=== PATIENT | male | born 1955 | race Caucasian/White ===

== ENCOUNTER 2024-07-01 05:46 | Day surgery (SDC) | payer MEDICARE ==
[2024-06-29 13:35] LABS: BASOPHILS # (AUTO) 0.07 K/uL (0.00-0.20); BASOPHILS % (AUTO) 0.9 % (0.0-5.0); EOSINOPHILS # (AUTO) 0.37 K/uL (0.00-0.70); EOSINOPHILS % (AUTO) 4.7 % (0.0-8.0); HEMATOCRIT 38.1 % (42-54); IMMATURE GRANULOCYTE ABSOLUTE 0.02 K/uL (0-1); LYMPHOCYTES % (AUTO) 25.4 % (21.0-51.0); MEAN CORPUSCULAR HEMOGLOBIN 29.3 pg (27.0-33.0); MEAN CORPUSCULAR HGB CONC 31.5 g/dL (32.0-36.0); MEAN CORPUSCULAR VOLUME 92.9 fL (79-99); MONOCYTES # (AUTO) 0.8 K/uL (0.1-1.0); MONOCYTES % (AUTO) 9.7 % (3.0-13.0); NEUTROPHILS # (AUTO) 4.6 K/uL (1.8-7.7); PLATELET COUNT (AUTO) 290 K/uL (130-400); RED CELL DISTRIBUTION WIDTH 15.1 % (11.0-15.5); WHITE BLOOD COUNT (AUTO) 7.8 K/uL (4.8-10.8)
[2024-06-29 13:48] LABS: INR 1.08 (0.85-1.15)
[2024-06-29 13:49] LABS: PARTIAL THROMBOPLASTIN TIME 29.1 SEC (26.3-35.5)
[2024-06-29 13:54] LABS: CREATININE 1.3 mg/dL (0.5-1.3); POTASSIUM 5.1 mmol/L (3.5-5.1)
[2024-06-29 14:30] VITALS: BP 123/58; PULSE 60; RESP 15; TEMP 97.7
--- NOTE | 2024-06-29 16:46 | EKG ---
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
[~2024-07-01] VITALS: Ht 177.8 cm; Wt 90.7 kg
[2024-07-01] VITALS (19 sets, daily range): BP systolic 95–140; BP diastolic 54–74; PULSE 73–82; RESP 10–20; TEMP 96.8–98.1
[~2024-07-01 05:46] MED LIST: APIX5TAB PO; ATOR40TA71 PO; BUPR-49 PO; METF-446 PO; METO-391 PO; TAMS-1 PO
[2024-07-01] MEDS ORDERED: 0.9%NACL 1000ML 1,000 ML IV ONE (06:05)
[2024-07-01] MEDS ORDERED: ketaMINE 50MG/ML SYRINGE 50 MG/ML DISP.SYRIN ONE (06:59)
[2024-07-01] MEDS ORDERED: NEOSTIGMINE METHYLSULFATE 1MG/ML IV ONE (06:59)
[2024-07-01] MEDS ORDERED: LIDOCAINE PF 100MG/5ML (2%) SYRINGE 5ML ONE (06:59)
[2024-07-01] MEDS ORDERED: proPOFol 10 MG/ML 20ML VIAL IV ONE (06:59)
[2024-07-01] MEDS ORDERED: GLYCOPYRROLATE 0.2 MG/ML 5 ML VIAL ONE (06:59)
[2024-07-01] MEDS ORDERED: MIDAZOLAM HCL 1 MG/ML 2ML VIAL ONE ×2 (07:00→07:29)
[2024-07-01] MEDS ORDERED: FENTanyl CITRate PF 50 MCG/1 ML 2ML VIAL ONE ×3 (07:00→11:59)
[2024-07-01] MEDS ORDERED: rocuRONium bROMide 10MG/1ML 5ML VL ONE ×2 (07:00→09:46)
[2024-07-01] MEDS ORDERED: phenylEPHRINE HCL 10 MG/ML 1ML VIAL IV ONE ×3 (07:00→09:20)
[2024-07-01] MEDS ORDERED: LIDOCAINE HCL 400MG/20ML VIAL ONE (07:25)
[2024-07-01] MEDS ORDERED: HEParin 10,000 UNIT/10ML (1,000 UNIT/ML) VIAL ONE ×3 (07:25→09:58)
[2024-07-01] MEDS ORDERED: HEParin-NS 1,000 UNIT/500 ML 1,500 ML IV ONE (07:26)
[2024-07-01] MEDS ORDERED: ePHEDrine SULFate 50 MG/ML AMPULE ONE (08:43)
[2024-07-01 09:36] LABS: ABG BASE EXCESS -2.1 mmol/L (-2.0-3.0); ABG HCO3 22.8 mmol/L (21.0-28.0); ABG OXYGEN SATURATION 99.6 % (94.0-98.0); ABG PCO2 40 mmHg (35-48); ABG PH 7.378 (7.350-7.450); CARBON MONOXIDE 0.3 % (0.5-1.5); HHb 0.4; PO2, ARTERIAL BG 483.9 mmHg (83.0-108.0); VENT MODE, BG ANT VENT (ROOM AIR)
[2024-07-01] MEDS ORDERED: NOREPINEPHRINE BITARTRATE 1 MG/1 ML ML IV ONE (09:50)
[2024-07-01] MEDS ORDERED: SUGAMMADEX SODIUM 200 MG/2 ML VIAL IV ONE (11:31)
[2024-07-01] MEDS ORDERED: PROTamine SULFate 10 MG/ML 25ML VIAL IV ONE (11:34)
[2024-07-01] MEDS ORDERED: PANT40TA55 PO (11:47)
[2024-07-01] MEDS ORDERED: SUCR1TAB2 PO (11:47)
[2024-07-01] MEDS: PANTOPrazole 40 MG TAB DR PO ONE (12:32)
[2024-07-01] MEDS: SUCRALFATE 1 GM/10 ML PO ONE (12:32)
--- NOTE | 2024-07-01 14:27 | NUR ---
REPORT: REPORT GIVEN TO SAAD WILKINS RN
--- NOTE | 2024-07-01 15:02 | NUR ---
DR. FERREIRA MADE AWARE PATIENT BLADDER SCAN RESULTS SHOWING 300 ML MAX VOLUME. PATIENT DENIES FEELING URGE TO URINATE, BLADDER DOES NOT FEEL DISTENDED. PER MD, PATIENT OK TO DISCHARGE HOME. INSTRUCTED PATIENT TO CONTINUE TO DRINK PLENTY OF FLUIDS. PATIENT AND SPOUSE EDUCATED IF UNABLE TO VOID BY THIS EVENING (8PM) AND HAVING DISCOMFORT, TO REPORT TO NEAREST ER. PATIENT AND SPOUSE VERBALIZED UNDERSTANDING.
--- NOTE | 2024-07-01 15:30 | NUR ---
PATIENT UP TO RESTROOM AT THIS TIME AND VOIDED.
== END 2024-07-01 15:40 | disposition home or self-care (01) ==
LOC: DAH 05:46
PROVIDERS: ATTEND Internal Medicine Cardiovascular Disease
DX: I48.19 Other persistent atrial fibrillation (principal); I10 Essential (primary) hypertension; E11.9 Type 2 diabetes mellitus without complications; I25.10 Atherosclerotic heart disease of native coronary artery without angina pectoris; G47.33 Obstructive sleep apnea (adult) (pediatric); E78.5 Hyperlipidemia, unspecified; Z95.5 Presence of coronary angioplasty implant and graft; Z96.652 Presence of left artificial knee joint; Z86.73 Personal history of transient ischemic attack (TIA), and cerebral infarction without residual deficits; Z99.89 Dependence on other enabling machines and devices; Z79.01 Long term (current) use of anticoagulants; Z79.84 Long term (current) use of oral hypoglycemic drugs; Z79.899 Other long term (current) drug therapy
CPT/HCPCS: 80048; 85025; 85610; 85730; 36415 ×2; 93005; 93656; 82947; 93657 ×2; 82435; 84132; 84295; 82803; 85347 ×9; 85018; 83605; 82948 ×2; A4344; C1894 ×4; C1732 ×3; A4649 ×2; C1760 ×3; C1766; J3010 ×3; J3490 ×5; J7030; J2003; J1644 ×4; J2250; J2704; J2710; J2371 ×3; A4215; A4222; A4221; A4663; A4216; A4606; J2720; A4223 ×3

== ENCOUNTER 2024-07-03 12:41 | Inpatient (IN) | payer MEDICARE ==
[~2024-07-03] VITALS: Ht 177.8 cm; Wt 93.5 kg
[~2024-07-03 12:41] MED LIST changes: +PANT40TA55 PO; +SUCR1TAB2 PO
--- NOTE | 2024-07-03 13:05 | EKG ---
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
--- NOTE | 2024-07-03 13:27 | HMCIMG ---
Exam Type: CHEST 1VW Clinical Information: sob Comparison: None Findings: The lungs are clear of infiltrates. The heart is normal in size. The bony and soft tissue structures of the chest are unremarkable. Impression: Clear lungs.
[2024-07-03 13:46] LABS: BASOPHILS # (AUTO) 0.04 K/uL (0.00-0.20); BASOPHILS % (AUTO) 0.3 % (0.0-5.0); EOSINOPHILS # (AUTO) 0.01 K/uL (0.00-0.70); EOSINOPHILS % (AUTO) 0.1 % (0.0-8.0); HEMATOCRIT 33.1 % (42-54); IMMATURE GRANULOCYTE ABSOLUTE 0.06 K/uL (0-1); LYMPHOCYTES # (AUTO) 1.1 K/uL (1.0-4.8); LYMPHOCYTES % (AUTO) 8.2 % (21.0-51.0); MEAN CORPUSCULAR HEMOGLOBIN 29.7 pg (27.0-33.0); MEAN CORPUSCULAR HGB CONC 31.7 g/dL (32.0-36.0); MEAN CORPUSCULAR VOLUME 93.5 fL (79-99); MONOCYTES # (AUTO) 1.2 K/uL (0.1-1.0); MONOCYTES % (AUTO) 9.1 % (3.0-13.0); NEUTROPHILS # (AUTO) 10.6 K/uL (1.8-7.7); NEUTROPHILS % (AUTO) 81.8 % (40.0-77.0); PLATELET COUNT (AUTO) 206 K/uL (130-400); RED BLOOD CELL COUNT(AUTO) 3.54 MIL/uL (4.50-6.20); RED CELL DISTRIBUTION WIDTH 15.2 % (11.0-15.5)
[2024-07-03 13:59] LABS: CREATININE 1.3 mg/dL (0.5-1.3); POTASSIUM 3.5 mmol/L (3.5-5.1)
[2024-07-03 14:03] LABS: ALBUMIN 3.1 g/dL (3.5-5.0); BILIRUBIN,DIRECT 0.4 mg/dL (0.0-0.3); BILIRUBIN,TOTAL 1.2 mg/dL (0.2-1.0); TOTAL PROTEIN, SERUM 6.3 g/dL (6.0-8.3)
[2024-07-03 14:28] LABS: APPEARANCE,URINE CLOUDY (CLEAR); BILIRUBIN,URINE NEGATIVE (NEGATIVE); COLOR,URINE YELLOW (YELLOW); GLUCOSE, URINE (UA) NEGATIVE (NEGATIVE); KETONES,URINE NEGATIVE (NEGATIVE); LEUKOCYTE ESTERASE ,URINE 500 Leu/uL (NEGATIVE); NITRATE,URINE NEGATIVE (NEGATIVE); OCCULT BLOOD,URINE SMALL (NEGATIVE); PH,URINE 5.5 (5.0-8.0); PROTEIN,URINE 10 mg/dL (NEGATIVE); UROBILINOGEN,URINE 0.2 mg/dL (0.2-1.0)
[2024-07-03 14:30] LABS: ADD UA MICROSCOPIC YES
--- NOTE | 2024-07-03 14:45 | ERN ---
General Chief Complaint: Post-Op Problem Stated Complaint: FEVER,VOMITTING,MULTIPLE COMPLAINTS Time Seen by MD: 12:43 Time Seen by Midlevel: 12:43 Source: patient History of Present Illness Initial Comments Patient is a 68-year-old male with a past medical history of atrial fibrillation, type 2 diabetes, and coronary artery disease presenting to the emergency department with generalized body weakness, subjective fever and one episode of nausea/vomiting that occurred prior to arrival. The patient reports having a heart ablation performed two days ago by Dr. Moreno. He was given Protonix and sucralfate but states that this morning he did not f wake up feeling good so he decided to report to the ER for further evaluation. Denies any chest pain or shortness of breath. Allergies: Coded Allergies: bee venom protein (honey bee) (Unverified Allergy, Unknown, 06/29/24) Home Meds Active Scripts Pantoprazole Sodium (Protonix) 40 Mg Ectab, 1 TAB PO DAILY for 15 Days, #15 TAB 0 Refills Prov:NELIDA MORENO MD 07/01/24 Reported Medications Metformin HCl (Metformin HCl) 1,000 Mg Tablet, 1000 MG PO BID, TAB 06/29/24 Atorvastatin Calcium (Atorvastatin Calcium) 40 Mg Tablet, 40 MG PO AM, TAB 06/29/24 Metoprolol Succinate (Metoprolol Succinate) 50 Mg Tab.er.24h, 50 MG PO BID, TAB 06/29/24 Tamsulosin HCl (Flomax) 0.4 Mg Cap.er.24h, 0.8 MG PO AM, CAPSULE.DR 06/29/24 Bupropion HCl (Bupropion Xl) 150 Mg Tab.er.24h, 150 MG PO AM, TAB 06/29/24 Apixaban (Eliquis) 5 Mg Tablet, 5 MG PO BID, TAB 06/29/24 Discontinued Scripts Sucralfate (Sucralfate) 1 Gram Tablet, 1 TAB PO QID for 15 Days, #60 TAB 0 Refills MUST DISSOLVE IN WATER DO NOT CRUSH Prov:NELIDA MORENO MD 07/01/24 Past Medical History Past Medical History: A-Fib, Diabetes-Type II, Heart Disease Past Surgical History: Other Surgical History Other: HEART ABLATION, KNEE, BACK, NECK ROS Dictation CONSTITUTIONAL: Negative except for HPI HEAD/FACE: Negative except for HPI EENT: Negative except for HPI RESPIRATORY: Negative except for HPI GASTROINTESTINAL/ABDOMINAL: Negative except for HPI GENITOURINARY: Negative except for HPI MUSCULOSKELETAL: Negative except for HPI INTEGUMENTARY: Negative except for HPI NEUROLOGICAL/PSYCH: Negative except for HPI HEMATOLOGIC/LYMPHATIC: Negative except for HPI All Systems Negative, Except as noted above. 13 point review of systems assessed and all negative except for above. Physical Exam Physical Exam Dictation Vital Signs reviewed General Appearance: Alert, oriented x 3, no acute distress, well developed, nourished. Head and Face: non-traumatic. Eyes: PERRL, pink conjunctivas, eyelid no trauma, anterior chamber with arcus senilis. Ears: Pinnas intact and no signs of trauma or erythema ear canals clear and no discharge TM no erythema Nose: No discharge, no bleeding. Oropharynx: Mouth normal, tongue pink, pharynx clear,no erythema, tonsils no exudates, no abscesses noted, mucous membrane moist Neck: Supple, non-tender, no thyromegaly, no masses, no JVD, no bruits Breast:Deferred Chest:No tenderness, no crepitus, no paradoxical movement, no retractions Lungs:Clear, well-ventilated, symmetric, no rales, no wheezing, no rhonchi, no stridor, good breath sounds bilaterally Heart: Regular rate, regular rhythm, no murmur, no gallops Vascular: no peripheral edema, Abdomen: Soft, positive bowel sounds, nondistended, no guarding, nontender, no rebound, no masses no hepatomegaly, no splenomegaly, no Roldan's sign, no hernias. Rectal: Deferred Genital: Deferred Neurological: Normal speech, motor function intact, sensory function intact Musculoskeletal: Neck nontender, full range of motion, back nontender, full range of motion, Extremities: nontender, full range of motion Skin: Color pink, dry, no turgor, no rash, no lacerations, no abrasions, no contusions. Lymphatic: Deferred Results Laboratory and Microbiology Lab and Micro Result Laboratory Tests Test 07/03/24 13:35 07/03/24 14:00 07/03/24 14:44 White Blood Count 13.0 K/uL (4.8-10.8) H Red Blood Count 3.54 MIL/uL (4.50-6.20) L Hemoglobin 10.5 g/dL (14.0-18.0) L Hematocrit 33.1 % (42-54) L Mean Corpuscular Volume 93.5 fL (79-99) Mean Corpuscular Hemoglobin 29.7 pg (27.0-33.0) Mean Corpuscular Hemoglobin Concent 31.7 g/dL (32.0-36.0) L Red Cell Distribution Width 15.2 % (11.0-15.5) Platelet Count 206 K/uL (130-400) Mean Platelet Volume 10.6 fL (7.5-10.5) H Immature Granulocyte % (Auto) 0.5 % (0-1) Neutrophils (%) (Auto) 81.8 % (40.0-77.0) H Lymphocytes (%) (Auto) 8.2 % (21.0-51.0) L Monocytes (%) (Auto) 9.1 % (3.0-13.0) Eosinophils (%) (Auto) 0.1 % (0.0-8.0) Basophils (%) (Auto) 0.3 % (0.0-5.0) Neutrophils # (Auto) 10.6 K/uL (1.8-7.7) H Lymphocytes # (Auto) 1.1 K/uL (1.0-4.8) Monocytes # (Auto) 1.2 K/uL (0.1-1.0) H Eosinophils # (Auto) 0.01 K/uL (0.00-0.70) Basophils # (Auto) 0.04 K/uL (0.00-0.20) Absolute Immature Granulocyte (auto 0.06 K/uL (0-1) Nucleated Red Blood Cells 0.0 % (0.0-0.19) White Cell Morphology Comment See comments Erythrocyte Sedimentation Rate 10 MM/HR (0-20) Sodium Level 138 mmol/L (136-145) Potassium Level 3.5 mmol/L (3.5-5.1) Chloride Level 102 mmol/L (101-111) Carbon Dioxide Level 26 mmol/L (21-32) Blood Urea Nitrogen 16 mg/dL (7-18) Creatinine 1.3 mg/dL (0.5-1.3) Glomerular Filtration Rate Calc 59 mL/min (>90) Random Glucose 152 mg/dL (70-105) H Total Calcium 8.4 mg/dL (8.5-10.1) L Magnesium Level 1.60 mg/dL (1.80-2.40) L Total Bilirubin 1.2 mg/dL (0.2-1.0) H Direct Bilirubin 0.4 mg/dL (0.0-0.3) H Aspartate Amino Transf (AST/SGOT) 30 U/L (10-37) Alanine Aminotransferase (ALT/SGPT) 22 U/L (12-78) Alkaline Phosphatase 125 U/L (50-136) Troponin I High Sensitivity 420 ng/L (4-75) *H 368 ng/L (4-75) *H C-Reactive Protein, Quantitative 51.90 mg/L (0.5-3.0) H Total Protein 6.3 g/dL (6.0-8.3) Albumin 3.1 g/dL (3.5-5.0) L Lipase 31 U/L (16-77) Procalcitonin 0.06 ng/mL (0.05-0.5) Urine Color YELLOW (YELLOW) Urine Appearance CLOUDY (CLEAR) H Urine pH 5.5 (5.0-8.0) Urine Specific [place] 1.019 (1.001-1.031) Urine Protein 10 mg/dL (NEGATIVE) H Urine Glucose (UA) NEGATIVE mg/dL (NEGATIVE) Urine Ketones NEGATIVE mg/dL (NEGATIVE) Urine Occult Blood SMALL (NEGATIVE) H Urine Nitrate NEGATIVE (NEGATIVE) Urine Bilirubin NEGATIVE mg/dL (NEGATIVE) Urine Urobilinogen 0.2 mg/dL (0.2-1.0) Urine Leukocyte Esterase 500 Jimbo/uL (NEGATIVE) H Urine RBC 2-5 /HPF (0-1) H Urine WBC 51-100 /HPF (0-1) H Urine Bacteria RARE /HPF (None Seen) Urine Hyaline Casts 2-5 /LPF (0-1 /LPF) H Labs Reviewed?: Yes MDM MDM: Differential diagnosis: ACS, postop complication, dehydration, electrolyte abnormality Rationale: Tests considered and ordered secondary to shared decision making include: Previous outside records reviewed: Old ER visits. Risk of complication and/or morbidity or mortality of patient management: None Medications-Per medication reconciliation Need for hospitalization: Patient does meet criteria for hospitalization. Need for emergency major/minor surgery: No There are no social concerns with this patient. Prescription drug management Prescriptions will include symptomatic care Patient's prior external medical records from other ER visits were reviewed by me as indicated. Prior testing and results from previous visits were reviewed. Prior tests were taken into account with medical decision making and resource utilization, independent historian/historians were used to obtain complete medical history. I independently interpreted the test that were performed, results were reviewed by me and considered findings on radiology if ordered. Medical management and examination interpretation discussions were had by me with other qualified healthcare professionals as indicated for the patient's care. ED Course Orders Procedure Category Date Status Time Cbc With Differential LAB 07/03/24 Complete 12:55 Basic Metabolic Panel LAB 07/03/24 Complete 12:55 Hepatic Function Panel LAB 07/03/24 Complete 12:55 Lipase LAB 07/03/24 Complete 12:55 Urinalysis Profile LAB 07/03/24 Complete 12:55 Chest 1vw RAD 07/03/24 Resulted 12:55 12 Lead Ekg Tracing- EKG 07/03/24 Resulted Technical 12:56 Troponin I High LAB 07/03/24 Complete Sensitivity 12:56 Culture Urine JENNIFER 07/03/24 In Process 14:30 Troponin I High LAB 07/03/24 Complete Sensitivity 14:35 Vital Signs Date Time Temp Pulse Resp B/P (MAP) Pulse Ox O2 Delivery O2 Flow Rate FiO2 07/03/24 12:50 98.2 79 16 103/57 98 Room Air [address] [facility] [address] [place] [id number] IMAGING REPORT Signed PATIENT: BAYRON SMITH MR#: [id number] : 1955 SEX: M AGE: 68 LOCATION: ED ORDER [id number] STATUS: REG ER REPORT#: [id number] SERVICE 1255 REASON: sob ORDERING PHYSICIAN: MARIA GUADALUPE MCKEON PROCEDURE: CXR1VW - CHEST 1VW Exam Type: CHEST 1VW Clinical Information: sob Comparison: None Findings: The lungs are clear of infiltrates. The heart is normal in size. The bony and soft tissue structures of the chest are unremarkable. Impression: Clear lungs. DICTATED BY: SALAZAR MORAN MD DATE: 07/03/24 1324 ELECTRONICALLY SIGNED BY: SALAZAR MORAN MD DATE: 07/03/24 1327 DX & DISP Disposition: Inpatient Decision to Admit Date: Jul 03, 2024 Departure Impression: Primary Impression: Elevated troponin Additional Impression: Urinary tract infection Condition: Stable Referrals: SELF,REFERRAL (PCP) I have reviewed the case, and I agree with, Diagnosis and Plan I performed the substantive portion of the visit. I have reviewed and personally made and approve the management plan that is documented in the note by myself or the AMOS. I acknowledge for responsibility for the patient's management plan. MARIA GUADALUPE MCKEON Jul 03, 2024 14:45
[2024-07-03 14:54] LABS: BACTERIA,URINE RARE /HPF (None Seen); MUCUS,URINE RARE LPF (None Seen); WBC,URINE 51-100 /HPF (0-1)
[2024-07-03 15:56] LABS: MAGNESIUM 1.6 mg/dL (1.80-2.40)
[2024-07-03] MEDS ORDERED: ondanSETRON 4MG INJ IVP PRN (16:00)
[2024-07-03] MEDS ORDERED: acetaMINOPHEN 325 MG TAB PO PRN (16:00)
[2024-07-03] MEDS ORDERED: PoTASSium chloRIDE 20MEQ/100ML 100 ML IV PRN (16:00)
[2024-07-03] MEDS ORDERED: PoTASSium chl 10% ELIXIR 20MEQ 20 MEQ/15 ML UDCUP PO PRN (16:00)
[2024-07-03] MEDS ORDERED: 0.9%NACL 50ML IV SCH (16:00)
--- NOTE | 2024-07-03 16:08 | NUR ---
advised doctor palma of lactic acis of 2.6, new order for fluids. Shoer Doctor Jewell at bedside and doctor palma
[2024-07-03] MEDS: ZOSYN 3.375GM +NS 50ML IVPB SCH (16:17)
[2024-07-03] MEDS: 0.9%NACL 1000ML 1,000 ML IV SCH (16:17)
--- NOTE | 2024-07-03 16:27 | PN ---
[facility] Progress Note CARDIOLOGY CONSULTATION June Chief complaint: This a 68-year-old male was admitted with fever , chills and dysuria and we are asked to address elevated troponin. History of present illness: The patient has a history of persistent atrial fibrillation and has been on chronic anticoagulation with Eliquis. He was here two days ago and underwent an AFib ablation procedure. It is not clear at that time whether a Louie catheter was placed during the procedure whether he required cardioversion during the procedure. He presents now with fever chills [place] [address]. Troponins are 420 and 368. The patient denies any chest pain. His electrocardiogram shows sinus rhythm with left bundle branch block which is chronic. Past medical history: The patient has a history of hypertension diabetes mellitus type 2 and remote history of TIA. He has known coronary disease and underwent PCI to the LAD in 2020. His left bundle branch block is chronic. He has a history of obstructive sleep apnea on CPAP therapy. Previous 2D echocardiogram in December 2023 showed an ejection fraction of 50-55%. He had [id number]-fuytqnok pulmonary hypertension with an estimated PA pressure of 55 mm Hg. Medications: The patient is taking Eliquis atorvastatin metoprolol succinate metformin. Review of systems: As noted he has had some fever and chills he denies any chest pain or shortness of breath. Allergies: Bee venom Physical exam: Blood pressure is 103/57 heart rate is in the 70s and currently regular. There was no elevation of the jugular venous pressure no bruits heard S1 normal S2 physiologically split. No murmur appreciable. Abdomen is soft. He has some ecchymosis in the right inguinal area around his access site for his recent ablation. Extremities show no edema. He is alert and oriented. Catheterization site in the right femoral area shows some ecchymosis. The areas soft. Laboratory studies: Potassium 3.5 BUN 16 creatinine 1.3 estimated GFR of 59. White count 38784 hemoglobin 10.5 platelet count is [id number]. Does have a left shift in his differential and has leukocyte esterase positive. Assessment: 1. Urinary tract infection 2. Elevated troponin post recent ablation possibly related to the ablation procedure and/or cardioversions during the procedure versus troponin leak in the setting of sepsis and type 2 ME. patient does however have underlying coronary disease in his status post a prior intervention on his LAD. If he has significant rise in troponins further ischemic workup will be necessary. 3. Diabetes mellitus type 2 4. Dyslipidemia 5. Chronic kidney disease stage IIIA 6. Remote history of TIA. Plan: The medical service I have ordered an ultrasound to look at the puncture site. We will plan on 0 troponins and if there was a significant rise in troponin he will require an ischemic workup otherwise this may represent a troponin leak and type 2 ME in the setting of urinary tract and possible sepsis. Additional possibility would include cardioversion at this was performed during his ablation procedures. Antibiotics as per the medical service. In the interim we will continue with his atorvastatin metoprolol succinate apixaban insulin scale and antibiotics. If in his troponin leak I will add aspirin 81 mg daily to his regimen. MARLON NARANJO MD Jul 03, 2024 16:27
[2024-07-03] MEDS: INSULIN humuLIN R 100 UNIT/ML 3ML SQ SCH (16:30)
[2024-07-03] MEDS: ASPIRIN 81MG CHEW TAB PO ONE (17:07)
[2024-07-03] MEDS: SUCRALFATE 1 GM TABLET PO SCH (17:07)
[2024-07-03] MEDS: 0.9% NACL 500ML IV.SOLN 500 ML IV ONE (17:07)
--- NOTE | 2024-07-03 17:20 | HP ---
[facility] HISTORY AND PHYSICAL Date of Service: Jul 03, 2024 Time of Service: 17:20 HISTORY OF PRESENT ILLNESS: Date of service: 07/03/2024, patient was seen in ER room 19 This is a 68 year old male with underlying history of atrial fibrillation status post recent cardiac ablation by Dr. Gilbert on 07/01/2024, prior history of cardioversion x4 for underlying atrial fibrillation, history of chronic anticoa gulation with Eliquis, hypertension, hyperlipidemia, history of coronary artery disease with prior history of stent to LAD, who presented to the ER for further evaluation of fevers, chills, malaise and dysuria. Symptoms have been ongoing since this morning and have proven progressively getting worse. Patient reports that he may have had Louie catheter placed while he underwent cardiac ablation. Since then he has been having significant dysuria as well. Denies any previous history of UTIs. Denies active chest pain or pleurisy. Patient states that he has been compliant with anticoagulation with Eliquis and continues to take metoprolol succinate post ablation. Family reports that patient has been having fevers of 101 F at home and he took Tylenol prior to coming to the ER. On presentation to the hospital, patient was noted to be afebrile with T-max of 98.2 F, pulse of 79, blood pressure 103/57. [place] [address], hemoglobin of 10.5, platelet count of 340022. BMP remarkable for sodium of 138, potassium 3.5, magnesium of 1.6, creatinine of 1.3, BUN of 16, high sensitivity troponin was noted to be el evated at 420. Urinalysis showed cloudy urine with significant leukocyte esterase, pyuria and bacteriuria. Patient will be admitted for further management of urinary tract infection. We will have Cardiology follow up with regards to elevated high sensitivity troponin. REVIEW OF SYSTEMS CONSTITUTIONAL: Asthenia, malaise, fevers, chills NEUROLOGICAL: Denies headache, amaurosis fugax, motor weakness, sensory deficit, vertigo/spinning sensation, gait abnormalities, or tremors. ENT: No hearing loss, otalgia, otorrhea, rhinitis, rhinorrhea, hoarseness, or sore throat. CARDIOVASCULAR: Denies any exertional angina, dyspnea on exertion, orthopnea, paroxysmal nocturnal dyspnea, palpitations, life-threatening arrhythmias, claudication. PULMONARY: Denies any shortness of breath, cough, phlegm/sputum, hemoptysis, pleuritic chest pain. SLEEP: Denies morning headaches, daytime somnolence or napping. Denies difficulty falling asleep, staying asleep, waking from sleep. Denies knowledge of snoring. GASTROINTESTINAL: Denies any type of dysphagia to either liquids or solids. Denies nausea, vomiting, pyrosis, early satiety, abdominal pain, diarrhea, constipation, or changes in stool consistency or caliber. Denies coffee-ground emesis, hematemesis, hematochezia, or melanotic stools. GENITOURINARY: Reports having dysuria and urinary urgency ENDOCRINOLOGIC: Denies polyuria, polydipsia, polyphagia or heat/cold intolerances. HEMATOLOGIC: Denies thrombophilia/previous clots, or coagulopathy/bleeding disorders. ONCOLOGIC: Denies personal history of malignancy. DERMATOLOGIC: Denies rashes or pruritus. PSYCHIATRIC: Denies any suicidal or homicidal ideation. Denies hallucinations. PAST MEDICAL HISTORY: Past medical history significant for hypertension, hyperlipidemia, history of TIA, coronary artery disease chronic left bundle branch block, obstructive sleep apnea, history of pulmonary hypertension, type 2 diabetes mellitus, history of atrial fibrillation PAST SURGICAL HISTORY: Patient has a previous history of PCI to LAD in 2020, history of cervical spine surgery with cervical spine fusion, history of back surgery in 2022, history of knee arthroplasty in 2023 PAST SOCIAL HISTORY: Denies active smoking or alcohol consumption FAMILY HISTORY: Denies pertinent family history Allergies: Patient reports having allergic reaction to bee venom protein Medications: Patient reports being on outpatient treatment with Carafate 1 g q.i.d., Protonix 40 mg daily, metformin 1000 mg b.i.d., Lipitor 40 mg daily, metoprolol succinate 50 mg b.i.d., Flomax 0.4 mg daily, bupropion 150 mg daily, apixaban 5 mg p.o. b.i.d. Coded Allergies: bee venom protein (honey bee) (Unverified Allergy, Unknown, 06/29/24) PHYSICAL EXAM GENERAL APPEARANCE: The patient is awake, alert, and oriented, in no acute card iopulmonary distress. NEUROLOGICAL: Cranial nerves II-XII grossly intact. Motor is 5/5 in bilateral upper and lower extremities proximal to distal. No sensory deficits. HEENT: Face is symmetric. Pupils are equal and reactive. Extraocular movements are intact. NECK: Supple. No JVD. No thyromegaly. No submental, submandibular, pre- /postauricular, occipital or supraclavicular lymphadenopathy. CHEST: Normal chest expansion. No Telemetry. LUNGS: Absence of any rales, rhonchi or any wheezing. CARDIOVASCULAR: Regular. S1 and S2 normal. No appreciable rubs, murmurs or gallops. ABDOMEN: Soft, nontender, and nondistended. There is no rebound, voluntary guarding, or rigidity. : Deferred. No Louie. EXTREMITIES: Right Groin femoral access site noted to have bruising and ecchymosis SKIN: No skin breakdown. Vital Sign (Last 24 Hours) 07/03/24 07/03/24 12:50 16:27 Temp 98.2 Pulse 80 Resp 17 B/P (MAP) 113/59 Pulse Ox 99 O2 Delivery Room Air* O2 Flow Rate 0 FiO2 21 LABS: Laboratory: Test 07/03/24 17:09 07/03/24 15:58 07/03/24 14:44 07/03/24 14:00 Range/Units Whole Blood Glucose 122 H 70-110 MG/DL Lactic Acid Level 2.6 H 0.8-2.5 mmol/L Troponin I High Sensitivity 368 *H 4-75 ng/L Urine Color YELLOW YELLOW Urine Appearance CLOUDY H CLEAR Urine pH 5.5 5.0-8.0 Urine Specific [place] 1.019 1.001-1.031 Urine Protein 10 H NEGATIVE mg/dL Urine Glucose (UA) NEGATIVE NEGATIVE mg/dL Urine Ketones NEGATIVE NEGATIVE mg/dL Urine Occult Blood SMALL H NEGATIVE Urine Nitrate NEGATIVE NEGATIVE Urine Bilirubin NEGATIVE NEGATIVE mg/dL Urine Urobilinogen 0.2 0.2-1.0 mg/dL Urine Leukocyte Esterase 500 H NEGATIVE Jimbo/uL Urine RBC 2-5 H 0-1 /HPF Urine WBC 51-100 H 0-1 /HPF Urine Bacteria RARE None Seen /HPF Urine Hyaline Casts 2-5 H 0-1 /LPF /LPF Test 07/03/24 13:35 Range/Units White Blood Count 13.0 H 4.8-10.8 K/uL Red Blood Count 3.54 L 4.50-6.20 MIL/uL Hemoglobin 10.5 L 14.0-18.0 g/dL Hematocrit 33.1 L 42-54 % Mean Corpuscular Volume 93.5 79-99 fL Mean Corpuscular Hemoglobin 29.7 27.0-33.0 pg Mean Corpuscular Hemoglobin Concent 31.7 L 32.0-36.0 g/dL Red Cell Distribution Width 15.2 11.0-15.5 % Platelet Count 206 130-400 K/uL Mean Platelet Volume 10.6 H 7.5-10.5 fL Immature Granulocyte % (Auto) 0.5 0-1 % Neutrophils (%) (Auto) 81.8 H 40.0-77.0 % Lymphocytes (%) (Auto) 8.2 L 21.0-51.0 % Monocytes (%) (Auto) 9.1 3.0-13.0 % Eosinophils (%) (Auto) 0.1 0.0-8.0 % Basophils (%) (Auto) 0.3 0.0-5.0 % Neutrophils # (Auto) 10.6 H 1.8-7.7 K/uL Lymphocytes # (Auto) 1.1 1.0-4.8 K/uL Monocytes # (Auto) 1.2 H 0.1-1.0 K/uL Eosinophils # (Auto) 0.01 0.00-0.70 K/uL Basophils # (Auto) 0.04 0.00-0.20 K/uL Absolute Immature Granulocyte (auto 0.06 0-1 K/uL Nucleated Red Blood Cells 0.0 0.0-0.19 % White Cell Morphology Comment See comments Erythrocyte Sedimentation Rate 10 0-20 MM/HR Sodium Level 138 136-145 mmol/L Potassium Level 3.5 3.5-5.1 mmol/L Chloride Level 102 101-111 mmol/L Carbon Dioxide Level 26 21-32 mmol/L Blood Urea Nitrogen 16 7-18 mg/dL Creatinine 1.3 0.5-1.3 mg/dL Glomerular Filtration Rate Calc 59 >90 mL/min Random Glucose 152 H 70-105 mg/dL Total Calcium 8.4 L 8.5-10.1 mg/dL Magnesium Level 1.60 L 1.80-2.40 mg/dL Total Bilirubin 1.2 H 0.2-1.0 mg/dL Direct Bilirubin 0.4 H 0.0-0.3 mg/dL Aspartate Amino Transf (AST/SGOT) 30 10-37 U/L Alanine Aminotransferase (ALT/SGPT) 22 12-78 U/L Alkaline Phosphatase 125 50-136 U/L C-Reactive Protein, Quantitative 51.90 H 0.5-3.0 mg/L Total Protein 6.3 6.0-8.3 g/dL Albumin 3.1 L 3.5-5.0 g/dL Lipase 31 16-77 U/L Procalcitonin 0.06 0.05-0.5 ng/mL Current Medications Medications (Trade) Dose Ordered Sig/Jair Route PRN Reason Start Time Stop Time Status Last Admin Dose Admin Acetaminophen (TYLenol 325MG TAB) 650 mg Q6H PRN PO MILD PAIN (1-3) 07/03/24 16:00 08/02/24 15:59 Apixaban (EliquIS) 5 mg BID PO 07/03/24 21:00 08/02/24 20:59 Aspirin (Aspirin 81mg Chew Tab) 81 mg DAILY PO 07/04/24 09:00 08/03/24 08:59 Atorvastatin Calcium (LIPItor 40MG) 40 mg AM PO 07/04/24 09:00 08/03/24 08:59 Home Med (Home Medication) (Bupropion Xl) 150 MG) AM PO 07/04/24 09:00 08/03/24 08:59 Insulin Human Regular (humuLIN R 100 UNIT/ML 3ML) INSULIN SLIDING SCAL... ACHS SQ 07/03/24 16:30 08/02/24 16:29 Magnesium Sulfate 50 ml @ 0 mls/hr PROTOCOL IV 07/03/24 16:00 08/02/24 15:59 Metoprolol Succinate (TopROL XL) 50 mg BID PO 07/03/24 21:00 08/02/24 20:59 Ondansetron HCl (zoFRAN 4MG INJ) 4 mg Q6H PRN IVP NAUSEA/VOMITING 07/03/24 16:00 08/02/24 15:59 Pantoprazole Sodium (PROTonix 40MG TAB) 40 mg DAILY PO 07/04/24 09:00 08/03/24 08:59 Piperacillin Sod/ Tazobactam Sod (Zosyn 3.375gm+NS 50ml) 3.375 gm Q8H IVPB 07/03/24 16:00 07/13/24 15:59 07/03/24 16:17 3.375 GM Potassium Chloride 100 ml @ 100 mls/hr AD PRN IV POTASSIUM PROTOCOL 07/03/24 16:00 08/02/24 15:59 Potassium Chloride (K-Dur/Klor-Con 20meq) 20 meq AD PRN PO POTASSIUM PROTOCOL 07/03/24 16:00 08/02/24 15:59 Potassium Chloride (KCl 10% Elixir 20meq/15ml) 20 meq AD PRN PO POTASSIUM PROTOCOL 07/03/24 16:00 08/02/24 15:59 Sodium Chloride 1,000 ml @ 75 mls/hr [id number] IV 07/03/24 16:00 08/02/24 15:59 07/03/24 16:17 75 MLS/HR Sodium Chloride (NS 50ml) 50 ml AD IV 07/03/24 16:00 08/02/24 15:59 Sucralfate (Carafate) 1 gm QID PO 07/03/24 17:00 08/02/24 16:59 07/03/24 17:07 1 GM Tamsulosin HCl (FloMAX) 0.8 mg AM PO 07/04/24 09:00 08/03/24 08:59 DIAGNOSTICS / RADIOLOGY: SERVICE 1255 REASON: sob ORDERING PHYSICIAN: MARIA GUADALUPE MCKEON PROCEDURE: CXR1VW - CHEST 1VW Exam Type: CHEST 1VW Clinical Information: sob Comparison: None Findings: The lungs are clear of infiltrates. The heart is normal in size. The bony and soft tissue structures of the chest are unremarkable. Impression: Clear lungs. DICTATED BY: SALAZAR MORAN MD DATE: 07/03/24 132 ELECTRONICALLY SIGNED BY: SALAZRA MORAN MD DATE: 07/03/24 132 ASSESSMENT: Acute complicated urinary tract infection, POA Leukocytosis secondary to UTI, POA Lactic acidosis, POA Elevated troponin, POA, likely secondary to recent cardiac ablation and possibly demand ischemia Recent history of cardiac ablation for atrial fibrillation on 07/01/[address] Gilbert, POA History of coronary artery disease with prior history of PCI to LAD in 2020, POA Small right groin hematoma with bruising/ecchymosis involving the right femoral access site, POA History of chronic anticoagulation with Eliquis, POA History of atrial fibrillation, POA Underlying history of hypertension, POA Hyperlipidemia, POA Type 2 diabetes mellitus, POA PLAN: Patient will be admitted to cardiac telemetry floor Patient denies active chest pain, cardiac troponin elevation is likely secondary to recent cardiac ablation procedure and possibly demand ischemia from underlying UTI as well We will obtain urine culture, blood culture, monitor lactic acid trend closely Patient will receive bolus of fluids with NS, we will start maintenance IV fluid of NS at 75 mL/hour We will start patient on IV antibiotics with Zosyn, we will also check a flu and a COVID test We will trend troponin and ensure it continues to trend down Right groin site noted to have small hematoma with bruising noted, discussed with Dr. Jewell, we will continue with anticoagulation with Eliquis We will continue with post cardiac ablation prophylaxis with Protonix and Carafate We will obtain a renal ultrasound to rule out any significant urinary tract abnormality given UTI Ensure K is greater than four and magnesium is greater than two, electrolytes will be repleted per protocol Home medications will be reconciled and updated, patient to continue with metoprolol succinate, Lipitor and patient will be started on aspirin 81 mg daily All labs will be repeated in the morning Date of service: 07/03/2024 Plan of care was discussed with patient at bedside, Lewis Boykin MD Advanced Care Planning: Which of the following were discussed: Hospice care: Yes __ No _X_ Therapeutic options: Yes _X_ No __ Advance directives: Yes _X_ No __ Other discussions: Discussed with who?: Patient Voluntary nature of this service was explained to the patient? Yes _x_ No __ Amount of time spent: 20 minutes LEWIS BOYKIN MD Jul 03, 2024 17:20
--- NOTE | 2024-07-03 17:56 | HMCIMG ---
US RENAL SONOGRAM HISTORY: significant UTI, r/o any renal tract abnormality TECHNIQUE: US RENAL SONOGRAM. FINDINGS: RIGHT KIDNEY: The right kidney measures 9.3cm. No hydronephrosis or renal calculus seen. LEFT KIDNEY: The left kidney measures 9.7cm. No hydronephrosis or renal calculus seen. The visualized urinary bladder is within normal limits. IMPRESSION: No hydronephrosis is seen.
--- NOTE | 2024-07-03 18:33 | HMCIMG ---
US SOFT TISSUE GROIN HISTORY: recent cardiac ablation, bruising noted of the right groin, r/o any hematoma TECHNIQUE: US SOFT TISSUE GROIN. FINDINGS/IMPRESSION: Ultrasound evaluation of the right groin was performed. Small fluid collection is seen measuring 1.7 x 1 x 1.5 cm. Prominent lymph nodes are noted, the largest measuring 1.7 cm.
--- NOTE | 2024-07-03 19:32 | NUR ---
PT CARE ASSUMED AT THIS TIME
--- NOTE | 2024-07-03 20:01 | NUR ---
PER DR. VERGARA PT IS OKAY TO CONTINUE WITH ELIQUIS AT THIS TIME
--- NOTE | 2024-07-03 20:08 | NUR ---
SPOKE TO RT TO SET UP HOME CPAP FOR PT AT THIS TIME.
[2024-07-03 21:11] LABS: SARS-CoV-2, RNA, NAAT NEGATIVE SARS CoV-2 (NEGATIVE)
[2024-07-03 21:15] LABS: INFLUENZA TYPE A Negative For Type A (NEGATIVE); INFLUENZA TYPE B Negative For Type B (NEGATIVE)
[2024-07-03] MEDS: metOPROLol sucCINATE 50 MG TAB.SR.24H PO SCH (21:18)
[2024-07-03] MEDS: APIXaban 5 MG TABLET PO SCH (21:19)
[2024-07-03 22:00] VITALS: PULSE 75; RESP 18; O2SAT 96
--- NOTE | 2024-07-03 22:09 | NUR ---
ORDERS GIVEN TO ADMINISTER POTASSIUM AND MAG AT THIS TIME.
[2024-07-03] MEDS: PoTASSium chloRIDE 20MEQ ER 20 MEQ ERTAB PO PRN (22:28)
[2024-07-03] MEDS: MAGNESIUM 2GM PREMIX 50ML 50 ML IV SCH (22:29)
[2024-07-03 22:53] VITALS: BP 122/68; PULSE 88; RESP 22; TEMP 98.7
--- NOTE | 2024-07-03 22:53 | NUR ---
PATIENT ARRIVED TO UNIT, WALKING WITH HOME CPAP CONNECTED. PATIENT ALERT, ORIENTED, AND ABLE TO COMMUNICATE NEEDS. CALL [facility] IN [place], TAUGHT HOW TO USE.
[2024-07-03 23:39] VITALS: O2SAT 96
[2024-07-04] VITALS (10 sets, daily range): BP systolic 118–132; BP diastolic 61–89; PULSE 82–89; RESP 18–22; TEMP 97.6–99.8; O2SAT 96–98
[2024-07-04 05:08] LABS: BASOPHILS # (AUTO) 0.04 K/uL (0.00-0.20); BASOPHILS % (AUTO) 0.3 % (0.0-5.0); EOSINOPHILS # (AUTO) 0.03 K/uL (0.00-0.70); EOSINOPHILS % (AUTO) 0.2 % (0.0-8.0); IMMATURE GRANULOCYTE ABSOLUTE 0.11 K/uL (0-1); LYMPHOCYTES # (AUTO) 1.3 K/uL (1.0-4.8); MEAN CORPUSCULAR HEMOGLOBIN 29.8 pg (27.0-33.0); MEAN CORPUSCULAR HGB CONC 32.8 g/dL (32.0-36.0); MEAN CORPUSCULAR VOLUME 90.9 fL (79-99); MONOCYTES % (AUTO) 7.2 % (3.0-13.0); NEUTROPHILS # (AUTO) 11.6 K/uL (1.8-7.7); NEUTROPHILS % (AUTO) 82.5 % (40.0-77.0); PLATELET COUNT (AUTO) 198 K/uL (130-400); RED BLOOD CELL COUNT(AUTO) 3.19 MIL/uL (4.50-6.20); RED CELL DISTRIBUTION WIDTH 15.7 % (11.0-15.5)
[2024-07-04 05:26] LABS: ALBUMIN 2.7 g/dL (3.5-5.0); BILIRUBIN,TOTAL 1.5 mg/dL (0.2-1.0); CREATININE 1.1 mg/dL (0.5-1.3); MAGNESIUM 1.8 mg/dL (1.80-2.40); POTASSIUM 3.8 mmol/L (3.5-5.1); TOTAL PROTEIN, SERUM 5.8 g/dL (6.0-8.3)
[2024-07-04] MEDS: tamSULOsin HCL 0.4 MG CAP.ER.24H PO SCH (08:31)
[2024-07-04] MEDS: ASPIRIN 81MG CHEW TAB PO SCH (08:31)
[2024-07-04] MEDS: PANTOPrazole 40 MG TAB DR PO SCH (08:31)
[2024-07-04] MEDS: atorVAStatin 40 MG TABLET PO SCH (08:32)
[2024-07-04] MEDS: BUPROPION PO SCH (08:38)
--- NOTE | 2024-07-04 12:15 | PN ---
[facility] PROGRESS NOTE Date of Service: Jul 04, 2024 Time of Service: 12:14 SUBJECTIVE: [ ] This is a 68-year-old male with past medical history of essential hypertension, hyperlipidemia, history of TIA, CAD, chronic left bundle-branch block, SARA, history of pulmonary hypertension, diabetes mellitus type, atrial fibrillation on Eliquis and recent cardiac ablation with Dr. Gilbert on 07/01/2024 and prior history of cardioversion x4 secondary to atrial fibrillation was admitted to the cardiac telemetry floor with diagnosis of acute complicated UTI with leukocytosis. Today at bedside evaluation patient is alert and oriented x3. is also at bedside. Latest vitals are stable, afebrile, satting 96% on room air. Today's white count is 14, H&H is stable at 9.5/29, CMP is stable. serial troponins reviewed, latest at 239 . Ecchymosis to right inguinal area. Technology Intern is following due to recent cardiac intervention. Recommended continue aspirin, Lipitor, metoprolol succinate and Eliquis. Pending urine culture results. Continue IV Zosyn for empiric treatment. We will continue to monitor closely. Discussed with primary nurse REVIEW OF SYSTEMS CONSTITUTIONAL: Asthenia, malaise, fevers, chills NEUROLOGICAL: Denies headache, amaurosis fugax, motor weakness, sensory deficit, vertigo/spinning sensation, gait abnormalities, or tremors. ENT: No hearing loss, otalgia, otorrhea, rhinitis, rhinorrhea, hoarseness, or sore throat. CARDIOVASCULAR: Denies any exertional angina, dyspnea on exertion, orthopnea, paroxysmal nocturnal dyspnea, palpitations, life-threatening arrhythmias, claudication. PULMONARY: Denies any shortness of breath, cough, phlegm/sputum, hemoptysis, pleuritic chest pain. SLEEP: Denies morning headaches, daytime somnolence or napping. Denies difficulty falling asleep, staying asleep, waking from sleep. Denies knowledge of snoring. GASTROINTESTINAL: Denies any type of dysphagia to either liquids or solids. Denies nausea, vomiting, pyrosis, early satiety, abdominal pain, diarrhea, constipation, or changes in stool consistency or caliber. Denies coffee-ground emesis, hematemesis, hematochezia, or melanotic stools. GENITOURINARY: Reports having dysuria and urinary urgency ENDOCRINOLOGIC: Denies polyuria, polydipsia, polyphagia or heat/cold intolerances. HEMATOLOGIC: Denies thrombophilia/previous clots, or coagulopathy/bleeding disorders. ONCOLOGIC: Denies personal history of malignancy. DERMATOLOGIC: Denies rashes or pruritus. PSYCHIATRIC: Denies any suicidal or homicidal ideation. Denies hallucinations. PHYSICAL EXAM GENERAL APPEARANCE: The patient is awake, alert, and oriented, in no acute cardiopulmonary distress. NEUROLOGICAL: Cranial nerves II-XII grossly intact. Motor is 5/5 in bilateral upper and lower extremities proximal to distal. No sensory deficits. HEENT: Face is symmetric. Pupils are equal and reactive. Extraocular movements are intact. NECK: Supple. No JVD. No thyromegaly. No submental, submandibular, pre- /postauricular, occipital or supraclavicular lymphadenopathy. CHEST: Normal chest expansion. No Telemetry. LUNGS: Absence of any rales, rhonchi or any wheezing. CARDIOVASCULAR: Regular. S1 and S2 normal. No appreciable rubs, murmurs or gallops. ABDOMEN: Soft, nontender, and nondistended. There is no rebound, voluntary guarding, or rigidity. : Deferred. No Louie. EXTREMITIES: Right Groin femoral access site noted to have bruising and ecchymosis SKIN: No skin breakdown. Vital Signs (last 8hr) Date Time Temp Pulse Resp B/P (MAP) Pulse Ox O2 Delivery O2 Flow Rate FiO2 07/04/24 11:38 99.5 86 20 119/69 96 Room Air 07/04/24 07:45 97.5 87 20 121/89 98 CPAP 07/04/24 07:00 88 18 LABS: Laboratory: Test 07/04/24 11:09 07/04/24 04:43 07/03/24 21:56 07/03/24 20:26 Range/Units Whole Blood Glucose 97 70-110 MG/DL White Blood Count 14.0 H 4.8-10.8 K/uL Red Blood Count 3.19 L 4.50-6.20 MIL/uL Hemoglobin 9.5 L 14.0-18.0 g/dL Hematocrit 29.0 L 42-54 % Mean Corpuscular Volume 90.9 79-99 fL Mean Corpuscular Hemoglobin 29.8 27.0-33.0 pg Mean Corpuscular Hemoglobin Concent 32.8 32.0-36.0 g/dL Red Cell Distribution Width 15.7 H 11.0-15.5 % Platelet Count 198 130-400 K/uL Mean Platelet Volume 10.8 H 7.5-10.5 fL Immature Granulocyte % (Auto) 0.8 0-1 % Neutrophils (%) (Auto) 82.5 H 40.0-77.0 % Lymphocytes (%) (Auto) 9.0 L 21.0-51.0 % Monocytes (%) (Auto) 7.2 3.0-13.0 % Eosinophils (%) (Auto) 0.2 0.0-8.0 % Basophils (%) (Auto) 0.3 0.0-5.0 % Neutrophils # (Auto) 11.6 H 1.8-7.7 K/uL Lymphocytes # (Auto) 1.3 1.0-4.8 K/uL Monocytes # (Auto) 1.0 0.1-1.0 K/uL Eosinophils # (Auto) 0.03 0.00-0.70 K/uL Basophils # (Auto) 0.04 0.00-0.20 K/uL Absolute Immature Granulocyte (auto 0.11 0-1 K/uL Nucleated Red Blood Cells 0.0 0.0-0.19 % Sodium Level 137 136-145 mmol/L Potassium Level 3.8 3.5-5.1 mmol/L Chloride Level 105 101-111 mmol/L Carbon Dioxide Level 27 21-32 mmol/L Blood Urea Nitrogen 14 7-18 mg/dL Creatinine 1.1 0.5-1.3 mg/dL Glomerular Filtration Rate Calc 72 >90 mL/min Random Glucose 102 70-105 mg/dL Total Calcium 8.2 L 8.5-10.1 mg/dL Magnesium Level 1.80 1.80-2.40 mg/dL Total Bilirubin 1.5 #H 0.2-1.0 mg/dL Aspartate Amino Transf (AST/SGOT) 28 10-37 U/L Alanine Aminotransferase (ALT/SGPT) 21 12-78 U/L Alkaline Phosphatase 112 50-136 U/L Total Creatine Kinase 65 21-232 U/L Troponin I High Sensitivity 239.1 *H 4-75 ng/L Total Protein 5.8 L 6.0-8.3 g/dL Albumin 2.7 L 3.5-5.0 g/dL Lactic Acid Level 2.3 0.8-2.5 mmol/L Influenza Type A Antigen Negative For Type A NEGATIVE Influenza Type B Antigen Negative For Type B NEGATIVE SARS-CoV-2, RNA, NAAT NEGATIVE SARS CoV-2 NEGATIVE Test 07/03/24 14:00 07/03/24 13:35 Range/Units Urine Color YELLOW YELLOW Urine Appearance CLOUDY H CLEAR Urine pH 5.5 5.0-8.0 Urine Specific [place] 1.019 1.001-1.031 Urine Protein 10 H NEGATIVE mg/dL Urine Glucose (UA) NEGATIVE NEGATIVE mg/dL Urine Ketones NEGATIVE NEGATIVE mg/dL Urine Occult Blood SMALL H NEGATIVE Urine Nitrate NEGATIVE NEGATIVE Urine Bilirubin NEGATIVE NEGATIVE mg/dL Urine Urobilinogen 0.2 0.2-1.0 mg/dL Urine Leukocyte Esterase 500 H NEGATIVE Jimbo/uL Urine RBC 2-5 H 0-1 /HPF Urine WBC 51-100 H 0-1 /HPF Urine Bacteria RARE None Seen /HPF Urine Hyaline Casts 2-5 H 0-1 /LPF /LPF White Cell Morphology Comment See comments Erythrocyte Sedimentation Rate 10 0-20 MM/HR Direct Bilirubin 0.4 H 0.0-0.3 mg/dL C-Reactive Protein, Quantitative 51.90 H 0.5-3.0 mg/L Lipase 31 16-77 U/L Procalcitonin 0.06 0.05-0.5 ng/mL Current Medications Medications (Trade) Dose Ordered Sig/Jair Route PRN Reason Start Time Stop Time Status Last Admin Dose Admin Acetaminophen (TYLenol 325MG TAB) 650 mg Q6H PRN PO MILD PAIN (1-3) 07/03/24 16:00 08/02/24 15:59 Apixaban (EliquIS) 5 mg BID PO 07/03/24 21:00 08/02/24 20:59 07/04/24 08:31 5 MG Aspirin (Aspirin 81mg Chew Tab) 81 mg DAILY PO 07/04/24 09:00 08/03/24 08:59 07/04/24 08:31 81 MG Atorvastatin Calcium (LIPItor 40MG) 40 mg AM PO 07/04/24 09:00 08/03/24 08:59 07/04/24 08:32 40 MG Home Med (Home Medication) (Bupropion Xl) 150 MG) AM PO 07/04/24 09:00 08/03/24 08:59 Insulin Human Regular (humuLIN R 100 UNIT/ML 3ML) INSULIN SLIDING SCAL... ACHS SQ 07/03/24 16:30 08/02/24 16:29 Magnesium Sulfate 50 ml @ 0 mls/hr PROTOCOL IV 07/03/24 16:00 08/02/24 15:59 07/03/24 22:29 25 MLS/HR Metoprolol Succinate (TopROL XL) 50 mg BID PO 07/03/24 21:00 08/02/24 20:59 07/04/24 08:31 50 MG Ondansetron HCl (zoFRAN 4MG INJ) 4 mg Q6H PRN IVP NAUSEA/VOMITING 07/03/24 16:00 08/02/24 15:59 Pantoprazole Sodium (PROTonix 40MG TAB) 40 mg DAILY PO 07/04/24 09:00 08/03/24 08:59 07/04/24 08:31 40 MG Piperacillin Sod/ Tazobactam Sod (Zosyn 3.375gm+NS 50ml) 3.375 gm Q8H IVPB 07/03/24 16:00 07/13/24 15:59 07/04/24 08:31 3.375 GM Potassium Chloride 100 ml @ 100 mls/hr AD PRN IV POTASSIUM PROTOCOL 07/03/24 16:00 08/02/24 15:59 Potassium Chloride (K-Dur/Klor-Con 20meq) 20 meq AD PRN PO POTASSIUM PROTOCOL 07/03/24 16:00 08/02/24 15:59 07/03/24 22:28 20 MEQ Potassium Chloride (KCl 10% Elixir 20meq/15ml) 20 meq AD PRN PO POTASSIUM PROTOCOL 07/03/24 16:00 08/02/24 15:59 Sodium Chloride 1,000 ml @ 75 mls/hr [id number] IV 07/03/24 16:00 08/02/24 15:59 07/04/24 06:12 75 MLS/HR Sodium Chloride (NS 50ml) 50 ml AD IV 07/03/24 16:00 08/02/24 15:59 Sucralfate (Carafate) 1 gm QID PO 07/03/24 17:00 08/02/24 16:59 07/04/24 08:32 1 GM Tamsulosin HCl (FloMAX) 0.8 mg AM PO 07/04/24 09:00 08/03/24 08:59 07/04/24 08:31 0.8 MG DIAGNOSTICS / RADIOLOGY: [ ] ASSESSMENT: Acute complicated urinary tract infection, POA Leukocytosis secondary to UTI, POA 14 Lactic acidosis, POA Elevated troponin, POA, likely secondary to recent cardiac ablation vs possibly demand ischemia from UTI Recent history of cardiac ablation for atrial fibrillation on 07/01/[address] Gilbert, POA History of coronary artery disease with prior history of PCI to LAD in 2020, POA Small right groin hematoma with bruising/ecchymosis involving the right femoral access site, POA chronic anticoagulation with Eliquis, POA atrial fibrillation, POA Essential hypertension, POA Hyperlipidemia, POA Type 2 diabetes mellitus, POA PLAN: Continue admission in the cardiac telemetry floor Patient denies active chest pain, cardiac troponin elevation is likely secondary to recent cardiac ablation procedure and possibly demand ischemia from underlying UTI as well Continue GI soft diet, advance as tolerated to heart healthy Continue IV Zosyn Pending final urine culture results Slowing down IV fluids with NS now at 35 mL/hr Continue IV Zosyn for empiric treatment Pending urine cultures Right groin site noted to have small hematoma with bruising noted, discussed with Dr. Jewell, we will continue with anticoagulation with Eliquis Continue with post cardiac ablation prophylaxis with Protonix and Carafate Reviewed renal ultrasound Ensure K is greater than four and magnesium is greater than two, electrolytes will be repleted per protocol Home medications will be reconciled and updated, patient to continue with metoprolol succinate, Lipitor and patient will be started on aspirin 81 mg daily Continue to monitor a.m. labs, pending final cultures PRN Treatment - Add when necessary meds for nausea, vomiting, pain, constipation, insomnia. DVT/GI prophylaxis- Continue Eliquis and Protonix at current doses. Full CODE STATUS This document was generated in part using voice recognition software, occasional wrong word or sound alike substitutions may have occurred due to the inherent limitations of voice recognition software. Read the chart carefully and recognize using context, where the substitutions have occurred. Although every effort was made to edit the content, attendant arcade and typing errors may occur JONATHON GALINDO [facility] Jul 04, 2024 12:15
[2024-07-05] VITALS (9 sets, daily range): BP systolic 102–152; BP diastolic 55–87; PULSE 70–101; RESP 18–19; TEMP 98.1–100.3; O2SAT 96–98
[2024-07-05 05:07] LABS: BASOPHILS # (AUTO) 0.07 K/uL (0.00-0.20); BASOPHILS % (AUTO) 0.5 % (0.0-5.0); EOSINOPHILS # (AUTO) 0.12 K/uL (0.00-0.70); EOSINOPHILS % (AUTO) 0.9 % (0.0-8.0); IMMATURE GRANULOCYTE ABSOLUTE 0.07 K/uL (0-1); LYMPHOCYTES # (AUTO) 1.3 K/uL (1.0-4.8); MEAN CORPUSCULAR HEMOGLOBIN 29.7 pg (27.0-33.0); MEAN CORPUSCULAR HGB CONC 33.1 g/dL (32.0-36.0); MEAN CORPUSCULAR VOLUME 89.8 fL (79-99); MONOCYTES # (AUTO) 1.5 K/uL (0.1-1.0); MONOCYTES % (AUTO) 11.3 % (3.0-13.0); NEUTROPHILS # (AUTO) 10.1 K/uL (1.8-7.7); NEUTROPHILS % (AUTO) 76.8 % (40.0-77.0); PLATELET COUNT (AUTO) 186 K/uL (130-400); RED BLOOD CELL COUNT(AUTO) 3.23 MIL/uL (4.50-6.20); RED CELL DISTRIBUTION WIDTH 15.5 % (11.0-15.5); WHITE BLOOD COUNT (AUTO) 13.1 K/uL (4.8-10.8)
[2024-07-05 05:24] LABS: CREATININE 1.2 mg/dL (0.5-1.3); POTASSIUM 3.8 mmol/L (3.5-5.1)
--- NOTE | 2024-07-05 08:38 | NUR ---
DC PLAN VISITED WITH PATIENT. PATIENT LIVES WITH SPOUSE. INDEPENDENT ABLE TO PERFORM ADL'S. NO SERVICES. DME: CPAP MACHINE. FEELS SAFE TO RETURN HOME. Addendum: 07/05/24 at 0839 by CAROL ORTEGA RN CM Amended: Links added.
--- NOTE | 2024-07-05 15:08 | PN ---
[facility] PROGRESS NOTE Date of Service: Jul 05, 2024 Time of Service: 15:[address] Garcia SUBJECTIVE: [ ] 07/04 This is a 68-year-old male with past medical history of essential hypertension, hyperlipidemia, history of TIA, CAD, chronic left bundle-branch block, SARA, history of pulmonary hypertension, diabetes mellitus type, atrial fibrillation on Eliquis and recent cardiac ablation with Dr. Gilbert on 07/01/2024 and prior history of cardioversion x4 secondary to atrial fibrillation was admitted to the cardiac telemetry floor with diagnosis of acute complicated UTI with leukocytosis. Today at bedside evaluation patient is alert and oriented x3. is also at bedside. Latest vitals are stable, afebrile, satting 96% on room air. Today's white count is 14, H&H is stable at 9.5/29, CMP is stable. serial troponins reviewed, latest at 239 . Ecchymosis to right inguinal area. Instructor Decorating is following due to recent cardiac intervention. Recommended continue aspirin, Lipitor, metoprolol succinate and Eliquis. Pending urine culture results. Continue IV Zosyn for empiric treatment. We will continue to monitor closely. Discussed with primary nurse 07/05 patient was seen by nurse practitioner physician during rounding in 05/22/2024. As per implementation advisor recommendation patient was placed on atorvastatin, metoprolol, Eliquis and aspirin 81. WBC today is 13.1 UA positive for leukocytosis final urine culture negative. Patient continues to be on Zosyn. At this moment we are still pending final blood culture. Renal ultrasound was negative. Soft tissue ultrasound groin showed right small fluid 1.7 x 1 x 1.5 cm largest lymph node measuring 1.7 cm. Chest x-ray cleared. We will continue to monitor patient in the meantime. A.m. labs REVIEW OF SYSTEMS CONSTITUTIONAL: Asthenia, malaise, fevers, chills NEUROLOGICAL: Denies headache, amaurosis fugax, motor weakness, sensory deficit, vertigo/spinning sensation, gait abnormalities, or tremors. ENT: No hearing loss, otalgia, otorrhea, rhinitis, rhinorrhea, hoarseness, or sore throat. CARDIOVASCULAR: Denies any exertional angina, dyspnea on exertion, orthopnea, paroxysmal nocturnal dyspnea, palpitations, life-threatening arrhythmias, claudication. PULMONARY: Denies any shortness of breath, cough, phlegm/sputum, hemoptysis, pl euritic chest pain. SLEEP: Denies morning headaches, daytime somnolence or napping. Denies difficulty falling asleep, staying asleep, waking from sleep. Denies knowledge of snoring. GASTROINTESTINAL: Denies any type of dysphagia to either liquids or solids. Denies nausea, vomiting, pyrosis, early satiety, abdominal pain, diarrhea, constipation, or changes in stool consistency or caliber. Denies coffee-ground emesis, hematemesis, hematochezia, or melanotic stools. GENITOURINARY: Reports having dysuria and urinary urgency ENDOCRINOLOGIC: Denies polyuria, polydipsia, polyphagia or heat/cold intolerances. HEMATOLOGIC: Denies thrombophilia/previous clots, or coagulopathy/bleeding disorders. ONCOLOGIC: Denies personal history of malignancy. DERMATOLOGIC: Denies rashes or pruritus. PSYCHIATRIC: Denies any suicidal or homicidal ideation. Denies hallucinations. PHYSICAL EXAM GENERAL APPEARANCE: The patient is awake, alert, and oriented, in no acute cardiopulmonary distress. NEUROLOGICAL: Cranial nerves II-XII grossly intact. Motor is 5/5 in bilateral upper and lower extremities proximal to distal. No sensory deficits. HEENT: Face is symmetric. Pupils are equal and reactive. Extraocular movements are intact. NECK: Supple. No JVD. No thyromegaly. No submental, submandibular, pre-/p ostauricular, occipital or supraclavicular lymphadenopathy. CHEST: Normal chest expansion. No Telemetry. LUNGS: Absence of any rales, rhonchi or any wheezing. CARDIOVASCULAR: Regular. S1 and S2 normal. No appreciable rubs, murmurs or gallops. ABDOMEN: Soft, nontender, and nondistended. There is no rebound, voluntary guarding, or rigidity. : Deferred. No Louie. EXTREMITIES: Right Groin femoral access site noted to have bruising and ecchymosis SKIN: No skin breakdown. Vital Signs (last 8hr) Date Time Temp Pulse Resp B/P (MAP) Pulse Ox O2 Delivery O2 Flow Rate FiO2 07/05/24 12:00 98.1 71 19 102/55 100 Room Air 07/05/24 08:20 98 Room Air* 0 21 07/05/24 08:00 98.1 70 19 109/69 90 Room Air LABS: Laboratory: Test 07/05/24 11:12 07/05/24 04:57 07/04/24 04:43 07/03/24 21:56 Range/Units Whole Blood Glucose 118 H 70-110 MG/DL White Blood Count 13.1 H 4.8-10.8 K/uL Red Blood Count 3.23 L 4.50-6.20 MIL/uL Hemoglobin 9.6 L 14.0-18.0 g/dL Hematocrit 29.0 L 42-54 % Mean Corpuscular Volume 89.8 79-99 fL Mean Corpuscular Hemoglobin 29.7 27.0-33.0 pg Mean Corpuscular Hemoglobin Concent 33.1 32.0-36.0 g/dL Red Cell Distribution Width 15.5 11.0-15.5 % Platelet Count 186 130-400 K/uL Mean Platelet Volume 10.7 H 7.5-10.5 fL Immature Granulocyte % (Auto) 0.5 0-1 % Neutrophils (%) (Auto) 76.8 40.0-77.0 % Lymphocytes (%) (Auto) 10.0 L 21.0-51.0 % Monocytes (%) (Auto) 11.3 3.0-13.0 % Eosinophils (%) (Auto) 0.9 0.0-8.0 % Basophils (%) (Auto) 0.5 0.0-5.0 % Neutrophils # (Auto) 10.1 H 1.8-7.7 K/uL Lymphocytes # (Auto) 1.3 1.0-4.8 K/uL Monocytes # (Auto) 1.5 H 0.1-1.0 K/uL Eosinophils # (Auto) 0.12 0.00-0.70 K/uL Basophils # (Auto) 0.07 0.00-0.20 K/uL Absolute Immature Granulocyte (auto 0.07 0-1 K/uL Nucleated Red Blood Cells 0.0 0.0-0.19 % Sodium Level 136 136-145 mmol/L Potassium Level 3.8 3.5-5.1 mmol/L Chloride Level 103 101-111 mmol/L Carbon Dioxide Level 27 21-32 mmol/L Blood Urea Nitrogen 14 7-18 mg/dL Creatinine 1.2 0.5-1.3 mg/dL Glomerular Filtration Rate Calc 65 >90 mL/min Random Glucose 92 70-105 mg/dL Total Calcium 7.9 L 8.5-10.1 mg/dL Magnesium Level 1.80 1.80-2.40 mg/dL Total Bilirubin 1.5 #H 0.2-1.0 mg/dL Aspartate Amino Transf (AST/SGOT) 28 10-37 U/L Alanine Aminotransferase (ALT/SGPT) 21 12-78 U/L Alkaline Phosphatase 112 50-136 U/L Total Creatine Kinase 65 21-232 U/L Troponin I High Sensitivity 239.1 *H 4-75 ng/L Total Protein 5.8 L 6.0-8.3 g/dL Albumin 2.7 L 3.5-5.0 g/dL Lactic Acid Level 2.3 0.8-2.5 mmol/L Test 07/03/24 20:26 Range/Units Influenza Type A Antigen Negative For Type A NEGATIVE Influenza Type B Antigen Negative For Type B NEGATIVE SARS-CoV-2, RNA, NAAT NEGATIVE SARS CoV-2 NEGATIVE Current Medications Medications (Trade) Dose Ordered Sig/Jair Route PRN Reason Start Time Stop Time Status Last Admin Dose Admin Acetaminophen (TYLenol 325MG TAB) 650 mg Q6H PRN PO MILD PAIN (1-3) 07/03/24 16:00 08/02/24 15:59 Apixaban (EliquIS) 5 mg BID PO 07/03/24 21:00 08/02/24 20:59 07/05/24 08:17 5 MG Aspirin (Aspirin 81mg Chew Tab) 81 mg DAILY PO 07/04/24 09:00 08/03/24 08:59 07/05/24 08:17 81 MG Atorvastatin Calcium (LIPItor 40MG) 40 mg AM PO 07/04/24 09:00 08/03/24 08:59 07/05/24 08:20 40 MG Home Med (Home Medication) (Bupropion Xl) 150 MG) AM PO 07/04/24 09:00 08/03/24 08:59 Insulin Human Regular (humuLIN R 100 UNIT/ML 3ML) INSULIN SLIDING SCAL... ACHS SQ 07/03/24 16:30 08/02/24 16:29 07/04/24 17:55 3 UNIT Magnesium Sulfate 50 ml @ 0 mls/hr PROTOCOL IV 07/03/24 16:00 08/02/24 15:59 07/03/24 22:29 25 MLS/HR Metoprolol Succinate (TopROL XL) 50 mg BID PO 07/03/24 21:00 08/02/24 20:59 07/05/24 12:21 50 MG Ondansetron HCl (zoFRAN 4MG INJ) 4 mg Q6H PRN IVP NAUSEA/VOMITING 07/03/24 16:00 08/02/24 15:59 Pantoprazole Sodium (PROTonix 40MG TAB) 40 mg DAILY PO 07/04/24 09:00 08/03/24 08:59 07/05/24 08:17 40 MG Piperacillin Sod/ Tazobactam Sod (Zosyn 3.375gm+NS 50ml) 3.375 gm Q8H IVPB 07/03/24 16:00 07/13/24 15:59 07/05/24 08:17 3.375 GM Potassium Chloride 100 ml @ 100 mls/hr AD PRN IV POTASSIUM PROTOCOL 07/03/24 16:00 08/02/24 15:59 Potassium Chloride (K-Dur/Klor-Con 20meq) 20 meq AD PRN PO POTASSIUM PROTOCOL 07/03/24 16:00 08/02/24 15:59 07/05/24 12:21 20 MEQ Potassium Chloride (KCl 10% Elixir 20meq/15ml) 20 meq AD PRN PO POTASSIUM PROTOCOL 07/03/24 16:00 08/02/24 15:59 Sodium Chloride 1,000 ml @ 35 mls/hr Q24H IV 07/03/24 16:00 08/02/24 15:59 07/05/24 08:27 35 MLS/HR Sodium Chloride (NS 50ml) 50 ml AD IV 07/03/24 16:00 08/02/24 15:59 Sucralfate (Carafate) 1 gm QID PO 07/03/24 17:00 08/02/24 16:59 07/05/24 12:21 1 GM Tamsulosin HCl (FloMAX) 0.8 mg AM PO 07/04/24 09:00 08/03/24 08:59 07/05/24 08:20 0.8 MG DIAGNOSTICS / RADIOLOGY: [ ] ASSESSMENT: Acute complicated urinary tract infection, POA Leukocytosis secondary to UTI, POA 14 Lactic acidosis, POA Elevated troponin, POA, likely secondary to recent cardiac ablation vs possibly demand ischemia from UTI Recent history of cardiac ablation for atrial fibrillation on 07/01/[address] Gilbert, POA History of coronary artery disease with prior history of PCI to LAD in 2020, POA Small right groin hematoma with bruising/ecchymosis involving the right femoral access site, POA chronic anticoagulation with Eliquis, POA atrial fibrillation, POA Essential hypertension, POA Hyperlipidemia, POA Type 2 diabetes mellitus, POA PLAN: Patient admitted to room 425 Patient denies active chest pain, cardiac troponin elevation is likely secondary to recent cardiac ablation procedure and possibly demand ischemia from underlying UTI as well Continue GI soft diet, advance as tolerated to heart healthy Continue IV Zosyn, Final urine culture negative Blood culture pending Right groin site noted to have small hematoma with bruising noted, discussed with Dr. Jewell, we will continue with anticoagulation with Eliquis,asa Continue with post cardiac ablation prophylaxis with Protonix and Carafate Reviewed renal ultrasound Ensure K is greater than four and magnesium is greater than two, electrolytes will be repleted per protocol Home medications reconciled on 07/03/2024 Continue to monitor a.m. labs, pending final cultures PRN Treatment - Add when necessary meds for nausea, vomiting, pain, c onstipation, insomnia. DVT/GI prophylaxis- Continue Eliquis and Protonix at current doses. Full CODE STATUS ATTESTATION BY PHYSICIAN I have seen and examined the patient. I reviewed the documentation, medical decision making, and treatment plan as noted by the mid-level provider above. I agree with the findings and plan of care. Fabio Garcia IV, MD, [employer] Jul 05, 2024 15:08
[2024-07-06 03:42] VITALS: BP 143/80; PULSE 92; RESP 19; TEMP 99
[2024-07-06 05:18] LABS: BASOPHILS # (AUTO) 0.05 K/uL (0.00-0.20); BASOPHILS % (AUTO) 0.4 % (0.0-5.0); EOSINOPHILS # (AUTO) 0.03 K/uL (0.00-0.70); EOSINOPHILS % (AUTO) 0.2 % (0.0-8.0); HEMATOCRIT 29.1 % (42-54); IMMATURE GRANULOCYTE ABSOLUTE 0.09 K/uL (0-1); LYMPHOCYTES # (AUTO) 0.9 K/uL (1.0-4.8); LYMPHOCYTES % (AUTO) 7.4 % (21.0-51.0); MEAN CORPUSCULAR HEMOGLOBIN 29.8 pg (27.0-33.0); MEAN CORPUSCULAR VOLUME 90.4 fL (79-99); MONOCYTES # (AUTO) 1.7 K/uL (0.1-1.0); MONOCYTES % (AUTO) 13.3 % (3.0-13.0); PLATELET COUNT (AUTO) 218 K/uL (130-400); RED BLOOD CELL COUNT(AUTO) 3.22 MIL/uL (4.50-6.20); RED CELL DISTRIBUTION WIDTH 15.3 % (11.0-15.5); WHITE BLOOD COUNT (AUTO) 12.8 K/uL (4.8-10.8)
[2024-07-06 05:34] LABS: ALBUMIN 2.6 g/dL (3.5-5.0); BILIRUBIN,TOTAL 2.3 mg/dL (0.2-1.0); CREATININE 1.4 mg/dL (0.5-1.3); MAGNESIUM 1.7 mg/dL (1.80-2.40); POTASSIUM 3.8 mmol/L (3.5-5.1); TOTAL PROTEIN, SERUM 6.1 g/dL (6.0-8.3)
[2024-07-06 08:00] VITALS: BP 147/80; PULSE 93; RESP 19; TEMP 99.3
[2024-07-06 08:45] VITALS: O2SAT 96
[2024-07-06 12:00] VITALS: BP 118/70; PULSE 88; RESP 19; TEMP 98
[2024-07-06] MEDS ORDERED: ASPI-1005 PO (12:06)
[2024-07-06] MEDS ORDERED: SUCR1TAB PO (12:06)
[2024-07-06] MEDS ORDERED: LEVO-70 PO (12:06)
--- NOTE | 2024-07-06 12:13 | DS ---
Discharge Summary Hospital Course Summary: DATE OF ADMISSION:[07/03/2024] DATE OF DISCHARGE:[07/06/2024] DISPOSITION:[Home] CONDITION:[Medically cleared] CONSULTANTS:[Ceiling [facility]] FOLLOW UP APPOINTMENTS:[PCP 2 to 3 days. Ceiling [facility]er within one week.] PROCEDURES:[None IMAGING: report attached to summary MICROBIOLOGY: report attached to summary ACTIVITY:[Independent] HOME MEDICATIONS: see [facility] NEW MEDICATIONS:[Levofloxacin 500 mg p.o. daily times 10 days. Sucralfate 1 g tablet p.o. q.i.d. 120 pulse. Aspirin 81 mg chewable p.o. daily 60 tablets.] EMERGENCY INSTRUCTIONS: The patient was instructed to present to the nearest Emergency departmentr or call 911 once their symptoms will return or worsen Director Of Placement(s): Patient is 68 years old male with past medical history of essential hypertension, hyperlipidemia, history of TIA, CAD, chronic left bundle-branch block, SARA, history of pulmonary hypertension, diabetes mellitus type, atrial fibrillation on Eliquis and recent cardiac ablation with Dr. Moreno on 07/01/2024 and prior history of cardioversion x4 secondary to atrial fibrillation was admitted to the cardiac telemetry floor with diagnosis of acute complicated UTI with leukocytosis. Throughout the hospitalization patient underwent chest x-ray which showed clear lungs. Soft tissue ultrasound of the groin showed right small fluid 1.7 x 1 x 1.5 cm the biggest lymph node was measuring 1.7 cm. Patient also underwent renal ultrasound and was negative. Throughout the hospitalization patient was evaluated by the continuous improvement analyst and he recommended that patient continues with atorvastatin, metoprolol, apixaban and aspirin 81 mg daily. Patient's urine was growing Klebsiella pneumoniae is a final culture. Patient will be discharged on levofloxacin. Blood culture negative 72 hours. Patient was cleared to be discharged follow up with PCP 2 to 3 days. Ceiling [facility]er within one week. Assessment/Plan: ASSESSMENT: Acute complicated urinary tract infection, POA Urine culture growing Klebsiella pneumoniae Leukocytosis secondary to UTI, POA 14 Lactic acidosis, POA Elevated troponin, POA, likely secondary to recent cardiac ablation vs possibly demand ischemia from UTI Recent history of cardiac ablation for atrial fibrillation on 07/01/[address] Moreno, POA History of coronary artery disease with prior history of PCI to LAD in 2020, POA Small right groin hematoma with bruising/ecchymosis involving the right femoral access site, POA chronic anticoagulation with Eliquis, POA atrial fibrillation, POA Essential hypertension, POA Hyperlipidemia, POA Type 2 diabetes mellitus, POA Discharge Instructions: PHYSICAL EXAM GENERAL APPEARANCE: The patient is awake, alert, and oriented, in no acute cardiopulmonary distress. NEUROLOGICAL: Cranial nerves II-XII grossly intact. Motor is 5/5 in bilateral upper and lower extremities proximal to distal. No sensory deficits. HEENT: Face is symmetric. Pupils are equal and reactive. Extraocular movements are intact. NECK: Supple. No JVD. No thyromegaly. No submental, submandibular, pre- /postauricular, occipital or supraclavicular lymphadenopathy. CHEST: Normal chest expansion. No Telemetry. LUNGS: Absence of any rales, rhonchi or any wheezing. CARDIOVASCULAR: Regular. S1 and S2 normal. No appreciable rubs, murmurs or gallops. ABDOMEN: Soft, nontender, and nondistended. There is no rebound, voluntary guarding, or rigidity. : Deferred. No Louie. EXTREMITIES: Right Groin femoral access site noted to have bruising and ec chymosis SKIN: No skin breakdow REVIEW OF SYSTEMS CONSTITUTIONAL: Denies any fever or chills NEUROLOGICAL: Denies headache, amaurosis fugax, motor weakness, sensory deficit, vertigo/spinning sensation, gait abnormalities, or tremors. ENT: No hearing loss, otalgia, otorrhea, rhinitis, rhinorrhea, hoarseness, or sore throat. CARDIOVASCULAR: Denies any exertional angina, dyspnea on exertion, orthopnea, paroxysmal nocturnal dyspnea, palpitations, life-threatening arrhythmias, claudication. PULMONARY: Denies any shortness of breath, cough, phlegm/sputum, hemoptysis, pleuritic chest pain. SLEEP: Denies morning headaches, daytime somnolence or napping. Denies difficulty falling asleep, staying asleep, waking from sleep. Denies knowledge of snoring. GASTROINTESTINAL: Denies any type of dysphagia to either liquids or solids. Denies nausea, vomiting, pyrosis, early satiety, abdominal pain, diarrhea, constipation, or changes in stool consistency or caliber. Denies coffee-ground emesis, hematemesis, hematochezia, or melanotic stools. GENITOURINARY: Reports having dysuria and urinary urgency ENDOCRINOLOGIC: Denies polyuria, polydipsia, polyphagia or heat/cold intolerances. HEMATOLOGIC: Denies thrombophilia/previous clots, or coagulopathy/bleeding disorders. ONCOLOGIC: Denies personal history of malignancy. DERMATOLOGIC: Denies rashes or pruritus. PSYCHIATRIC: Denies any suicidal or homicidal ideation. Denies hallucinations. Home Medications: Active Scripts Pantoprazole Sodium (Protonix) 40 Mg Ectab, 1 TAB PO DAILY for 15 Days, #15 TAB 0 Refills Prov:NELIDA MORENO MD 07/01/24 Reported Medications Metformin HCl (Metformin HCl) 1,000 Mg Tablet, 1000 MG PO BID, TAB 06/29/24 Atorvastatin Calcium (Atorvastatin Calcium) 40 Mg Tablet, 40 MG PO AM, TAB 06/29/24 Metoprolol Succinate (Metoprolol Succinate) 50 Mg Tab.er.24h, 50 MG PO BID, TAB 06/29/24 Tamsulosin HCl (Flomax) 0.4 Mg Cap.er.24h, 0.8 MG PO AM, CAPSULE.DR 06/29/24 Bupropion HCl (Bupropion Xl) 150 Mg Tab.er.24h, 150 MG PO AM, TAB 06/29/24 Apixaban (Eliquis) 5 Mg Tablet, 5 MG PO BID, TAB 06/29/24 Discontinued Scripts Sucralfate (Sucralfate) 1 Gram Tablet, 1 TAB PO QID for 15 Days, #60 TAB 0 Refills MUST DISSOLVE IN WATER DO NOT CRUSH Prov:NELIDA MORENO MD 07/01/24 Time spent arranging discharge: 31-60 minutes ATTESTATION BY PHYSICIAN I have seen and examined the patient. I reviewed the documentation, medical decision making, and treatment plan as noted by the mid-level provider above. I agree with the findings and plan of care. Fabio Garcia IV, MD, [employer] Jul 06, 2024 12:13
--- NOTE | 2024-07-06 12:46 | NUR ---
DISCHARGE DISCHARGE ORDERS OBTAINED FOR PATIENT TO BE DISCHARGED HOME. DISCHARGE INSTRUCTIONS AND DOCUMENTATION GIVEN TO PATIENT AND AT BEDSIDE. BOTH VOICED UNDERSTANDING. IV DISCONTINUED, CATHETER INTACT, NO S/S OF INFECTION NOTED TO AREA. PATIENT TOLERATED WELL. COVERED WITH 2X2 AND SECURED WITH COBAND. BANDS REMOVED. PENDING TRANSPORTATION
--- NOTE | 2024-07-06 13:42 | NUR ---
DISCHARGE PATIENT LEFT VIA WHEELCHAIR ACCOMPANIED BY . NO S/S OF DISTRESS NOTED.
== END 2024-07-06 13:05 | disposition home or self-care (01) | DRG 872 ==
LOC: EDH 12:41 → EDHIP 15:36 → 4DH 22:43
PROVIDERS: ADMIT Internal Medicine; ATTEND Internal Medicine
DX: A41.9 Sepsis, unspecified organism (principal); N39.0 Urinary tract infection, site not specified; E87.20 Acidosis, unspecified; I48.19 Other persistent atrial fibrillation; I24.89 Other forms of acute ischemic heart disease; Z20.822 Contact with and (suspected) exposure to COVID-19; E11.22 Type 2 diabetes mellitus with diabetic chronic kidney disease; E78.5 Hyperlipidemia, unspecified; I12.9 Hypertensive chronic kidney disease with stage 1 through stage 4 chronic kidney disease, or unspecified chronic kidney disease; B96.1 Klebsiella pneumoniae [K. pneumoniae] as the cause of diseases classified elsewhere; I25.10 Atherosclerotic heart disease of native coronary artery without angina pectoris; G47.33 Obstructive sleep apnea (adult) (pediatric); I27.20 Pulmonary hypertension, unspecified; N18.31 Chronic kidney disease, stage 3a; S30.1XXA Contusion of abdominal wall, initial encounter; Z86.73 Personal history of transient ischemic attack (TIA), and cerebral infarction without residual deficits; Z95.5 Presence of coronary angioplasty implant and graft; Z98.1 Arthrodesis status; Z79.01 Long term (current) use of anticoagulants; Z79.899 Other long term (current) drug therapy; X58.XXXA Exposure to other specified factors, initial encounter; Y93.89 Activity, other specified; Y92.89 Other specified places as the place of occurrence of the external cause; Y99.8 Other external cause status
CPT/HCPCS: 36415; 71045; 76770; 76882; 80048; 80053; 80076; 81001; 82550; 82948; 83605; 83690; 83735; 84145; 84484; 85025; 85651; 86140; 87040; 87086; 87186; 87635; 87804; 93005; 99285; G0378; J1815; J2543; J3475